=== PATIENT | female | born 1975 | race Caucasian/White ===

== ENCOUNTER 2017-09-12 11:56 | Outpatient (CLI) | payer BC ==
--- NOTE | 2017-09-12 14:48 | RAD ---
KUB: Date: 09/12/17 HISTORY: Calculus of kidney. FINDINGS/IMPRESSION: There is fecal material in the colon. The bowel gas pattern is unremarkable. No definite calculi is s een in the projection of the kidneys. Calcifications of pelvis are likely phleboliths. An IUD is pres ent. POS: [facility]
== END 2017-09-12 11:57 | disposition home or self-care (01) ==
LOC: RAD 11:56
PROVIDERS: ATTEND Urology
DX: N20.2 Calculus of kidney with calculus of ureter (principal); R19.5 Other fecal abnormalities; Z97.5 Presence of (intrauterine) contraceptive device
CPT/HCPCS: 74018; 81001

== ENCOUNTER 2017-09-18 12:32 | Outpatient (CLI) | payer BC ==
[2017-09-18 14:13] LABS: Hemoglobin 13.3 g/dL (12.0-16.0); Mean Corpuscular HGB CONC 34.6 g/dL (32.0-36.0); Mean Corpuscular Hemoglobin 31.8 pg (27.0-31.0); Mean Platelet Volume 8.9 fL (7.4-10.4); Platelet Count 319 thou/uL (130-400); RBC Distribution Width 11.8 % (11.5-14.5); Red Blood Cell (RBC) Count 4.19 mill/uL (4.20-5.40); White Blood Cell (WBC) Count 5.9 thou/uL (4.8-10.8)
[2017-09-18 14:25] LABS: BHCG - Serum Negative (NEGATIVE); Pregs Control Background? CLEAR/WHITE (CLR/WHITE); Pregs Control Bar Appear? YES (CONTROL BAR)
[2017-09-18 14:41] LABS: Anion Gap 11 mmol/L (10-20); BUN (Urea Nitrogen) 11 mg/dL (7.0-18.7); Calc. Creatinine Clearance 0 mL/min (70-130); Carbon Dioxide 23 mmol/L (22-29); Chloride 107 mmol/L (98-107); Estimated GFR-MDRD 76; Glucose 85 mg/dL (70-105); Potassium 3.7 mmol/L (3.5-5.1); Sodium 137 mmol/L (136-145)
--- NOTE | 2017-09-19 07:06 | EKG ---
Test Reason : Blood Pressure : / mmHG Vent. Rate : 059 BPM Atrial Rate : 059 BPM P-R Int : 116 ms QRS Dur : 084 ms QT Int : 408 ms P-R-T Axes : 020 076 027 degrees QTc Int : 403 ms Sinus bradycardia Otherwise normal ECG When compared with ECG of 08-AUG-2000 12:49, No significant change was found Confirmed by JENNIFER RAMIREZ ([id number]) on 09/19/2017 7:06:30 AM Referred By: TRACIE Confirmed By:JENNIFER RAMIREZ
== END 2017-09-18 12:33 | disposition home or self-care (01) ==
LOC: LABBT 12:32
PROVIDERS: ATTEND Urology
DX: Z01.818 Encounter for other preprocedural examination (principal); N20.2 Calculus of kidney with calculus of ureter
CPT/HCPCS: 80048; 81001; 84703; 85027; 87086; 93005; 93010

== ENCOUNTER → 2017-09-19 | Day surgery (SDC) | payer BC ==
[2017-09-18 12:54] VITALS: BMI 25.0
[~2017-09-19] MED LIST: CEFAZOLIN 1 GM VIAL ONE; Dexamethasone 20 MG/5 ML VIAL ONE; Fentanyl 100 MCG/2 ML VIAL ONE; HYDROcodone/Acetaminophen 5/325 mg Tablet ONE; Iothalamate Meglumine 60% 50 ML VIAL FS ONE; Lidocaine 1% PF 5 ML VIAL ONE; Metoclopramide HCl 10 MG/2 ML VIAL ONE; Midazolam HCl 2 mg/2 ml Vial ONE; Ondansetron HCl/PF 4 MG/2 ML Vial ONE; Oxybutynin 5 MG TAB ONE; PROPOFOL 200 MG/20 ML VIAL ONE; Phenazopyridine HCl 97.5 MG TABLET ONE; Sodium Chloride 0.9% 100 ML ONE; diphenhydrAMINE 50 MG/ML VIAL ONE
--- NOTE | 2017-09-19 11:33 | RAD ---
RADIOGRAPH ABDOMEN 1 VIEW: DATE: 09/19/17. HISTORY: A 42-year-old female for preoperative evaluation. COMPARISON: 09/12/17. FINDINGS: There are at least 3 small calcifications in the right hemipelvis and at least 2 in the left hemipelv is. One of these, which is oval, has migrated a short distance inferiorly and distally. It measures approximately 0.6 x 0.3 cm, and could be a left distal ureteral calculus. The other one is located more medial to this, and has not changed position. No calculi are visualized overlying the renal sha dows. Normal bowel gas pattern. IUD in the pelvis. IMPRESSION: 1. Apparent short distal migration of what is probably a distal left ureteral calculus 2. Intrauterine device. 3. Consider noncontrast CT of abdomen and pelvis for further evaluation. POS: [facility]
--- NOTE | 2017-09-19 20:16 | OP ---
DATE OF SERVICE: 09/19/2017 PREOPERATIVE DIAGNOSIS: Left ureteral stones. POSTOPERATIVE DIAGNOSIS: Left ureteral stones. PROCEDURE: Cystoscopy, left ureteroscopy, left holmium laser lithotripsy, stone basketing, stent ramiro cement 6 x 28 with string, left retrograde pyelogram. SURGEON: Jayne Medina M.D. ANESTHESIA: General with an ischemic. FINDINGS: Adequate removal of 2 distal ureteral stones. No complications. SPECIMENS: Stone. DRAINS: A 6 x 20 double-J with string. BLOOD LOSS: None. INDICATIONS: The patient is a 42-year-old female who was found in the office for initially proximal obstructing left ureteral stone moved distally by KUB, but failed spontaneous passage and just wanted to proceed with definitive therapy. The patient was brought to the room by anesthesia and was placed on the table in supine position. Af ter general anesthetic, the legs were placed in lithotomy position with the right leg elevated and le ft leg lowered and a perineum was prepped and draped in sterile fashion. Using a 21-[place] cystoscop e, 30 degree lens, the urethra was traversed and the bladder inspected. Ureteral orifices were ident ified in normal location. There were no lesions in the bladder. The left ureteral orifice was then intubated with a wire only. This was not to push the stones upward and then this was pinned to the r enal pelvis. Pollack catheter was advanced over the wire and into the renal pelvis where the wire wa s removed and no hydronephrotic drip was noted. No specimen able to be collected and the retrograde pyelogram was performed revealing no significant hydro and 28 x 6 double-J was chosen for the end of the case. At this point, a ureteral dilating balloon, a 15-[place] 6 cm was placed to dilate the left ureteral o rifice. Maximum pressure of 12 mmHg was used for the balloon. Fluoroscopy confirmed this was blown up adequately, then it was taken down leaving the wire in place. The scope broke apart, bladder drai kiara and then the rigid ureteroscope was used. Short rigid ureteroscope was used to go up to the level of the stone and it was noted that a stone wa s right at the orifice when starting and then it actually popped out and into the bladder, which was noted afterwards. So when the first ureteral stone was encountered, Holmium laser lithotripsy was us ed to bust in 2 pieces, which were then both grabbed into one basket and brought out through the uret hral meatus without difficulty and sent for specimen. Then, the ureteroscope was placed back up and down all the way to the proximal ureter and without seeing any other stone and with the thought that there might have been that stone that popped into the bladder. The ureteroscope was then removed and the cystoscope was back in and indeed there was a stone sitting in the bladder that popped out origi jim before getting second stone. So this was evacuated and sent for specimen along with the other and then the scope was back fed over the wire and a 6 x 28 double-J was placed over wire with good co il visualized in the renal pelvis via fluoroscopy and a good coil visualized in the bladder via cysto scopy. It still attached to the string so the scope was broken apart carefully and drained and then the string was secured to the patient's mons pubis. Patient tolerated the procedure well and was the n awakened and transferred to PACU in stable condition.
== END ==
LOC: SDC 09:39
PROVIDERS: ATTEND Urology
PROC: 0T778DZ Dilation of Left Ureter with Intraluminal Device, Via Natural or Artificial Opening Endoscopic (ICD-10-PCS; principal; 2017-09-19)
PROC: 0TC78ZZ Extirpation of Matter from Left Ureter, Via Natural or Artificial Opening Endoscopic (ICD-10-PCS; principal; 2017-09-19)
PROC: BT1FYZZ Fluoroscopy of Left Kidney, Ureter and Bladder using Other Contrast (ICD-10-PCS; principal; 2017-09-19)
DX: N20.2 Calculus of kidney with calculus of ureter (principal); N39.3 Stress incontinence (female) (male); G43.909 Migraine, unspecified, not intractable, without status migrainosus; M79.7 Fibromyalgia; F32.9 Major depressive disorder, single episode, unspecified; F41.9 Anxiety disorder, unspecified; Z87.891 Personal history of nicotine dependence; Z79.899 Other long term (current) drug therapy
CPT/HCPCS: 74018; 76000; 82365; 88300; 96374; C1758; C1769; J0690; J1100; J1200; J2001; J2250; J2405; J2704; J2765; J3010; J7050; Q9961

== ENCOUNTER 2021-04-02 12:07 | Outpatient (CLI) | payer OTHER | END 2021-04-02 12:08 | disposition home or self-care (01) | LOC: BICMAMMO 12:07 | PROVIDERS: ATTEND Obstetrics & Gynecology | DX: Z12.31 Encounter for screening mammogram for malignant neoplasm of breast (principal) | CPT/HCPCS: 77063; 77067 ==

== ENCOUNTER 2023-08-15 18:27 | Outpatient (CLI) | payer OTHER | END 2023-08-15 18:28 | disposition home or self-care (01) | LOC: SCSRAD 18:27 | PROVIDERS: ATTEND Nurse Practitioner Family | DX: R05.1 Acute cough (principal) | CPT/HCPCS: 71046 ==